=== PATIENT | female | born 1975 | race Caucasian/White ===

== ENCOUNTER 2018-04-19 21:19 | Emergency (ER) | payer SELFPAY ==
[~2018-04-19] VITALS: Ht 167.6 cm; Wt 53.1 kg
[2018-04-19 21:28] VITALS: BP 121/80
[2018-04-19] MEDS ORDERED: Methocarbamol 750mg tab ORAL ONE (22:00)
[2018-04-19] MEDS ORDERED: Augmentin 875mg Tab ORAL ONE (22:00)
[2018-04-19] MEDS ORDERED: Tetanus/Diptheria/Pertussis Vaccine 0.5ml Syr IM ONE (22:00)
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
[2018-04-19] MEDS ORDERED: Tylenol #3 tab (300mg/30mg) ORAL ONE (22:15)
[2018-04-19] MEDS ORDERED: ACETAMINOPHEN-1 EAC1 ORAL (23:34)
[2018-04-19] MEDS ORDERED: AUGMENTIN 875-1 EAC1 ORAL (23:35)
[2018-04-19 23:50] VITALS: BP 132/82
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
== END 2018-04-19 23:50 | disposition home or self-care (01) ==
LOC: EMR 21:58
DX: S02.5XXA Fracture of tooth (traumatic), initial encounter for closed fracture (principal); S00.83XA Contusion of other part of head, initial encounter; S20.229A Contusion of unspecified back wall of thorax, initial encounter; S01.80XA Unspecified open wound of other part of head, initial encounter; Y04.0XXA Assault by unarmed brawl or fight, initial encounter; Y92.89 Other specified places as the place of occurrence of the external cause; Z23 Encounter for immunization; F17.200 Nicotine dependence, unspecified, uncomplicated
CPT/HCPCS: 70450; 70486; 90471; 90715; 99284